=== PATIENT | male | born 1970 | race Caucasian/White ===

== ENCOUNTER → 2022-02-16 14:44 | Outpatient (BNVA) | payer OTHER, SELFPAY | PROVIDERS: PCP Nurse Practitioner; Visit Provider Internal Medicine Cardiovascular Disease | DX: R00.1 Bradycardia, unspecified (principal); T78.09XD Anaphylactic reaction due to other food products, subsequent encounter | CPT/HCPCS: 93005; 99203; 99204 ==

== ENCOUNTER 2022-04-01 11:01 | Outpatient (CLI) | payer OTHER, SELFPAY ==
[2022-04-01 11:20] VITALS: BMI 26.3
--- NOTE | 2022-04-01 11:40 | ECG_ITS ---
[facility] Test Date: 2022-04-01 Pat Name: Darryl Garcia Department: Room: Gender: Male Chart Calculator: Bhakti Leggett : 1970 Requested By: Jo Vega Order Number: [id number] Heber MD: Jo Vega M.D. Interpretive Statements NAME OF STUDY: TREADMILL STRESS ECHOCARDIOGRAM PROCEDURE: The baseline electrocardiogram showed [normal sinus rhythm with poor R wave progression. Possible old septal SC. At the baseline, the patient's blood pressure was 122/71 mm Hg with a heart rate of 66. The patient exercised for 13 minutes and 30 seconds on a standard Atul protocol. Patient attained a maximum heart rate of 162 beats per minute(97% of the maximum predicted heart rate) with a blood pressure at the peak exercise of 118/51 mm Hg. The EKG at the peak exercise revealed no significant changes. Patient did not have any chest pain or any significant arrhythmis with the exercise The echocardiographic pictures were taken at the baseline, immediate post exercise and during the recovery phase, at the standard views. During the recovery phase, there were no new changes. Blood pressure at the end of the recovery phase was 106/70 mm Hg with a heart rate of 78 per minute. CONCLUSION: 1. Normal EKG response to [treadmill exercise 2. No exercise-induced chest pain or cardiac arrhythmia 3. Good exercise tolerance, attained a maximum of 17.2 METs 4. The impaired blood pressure response to exercise may suggest increased cardiovascular risk. Clinical correlation is recommended 4. Echocardiographic pictures were taken at the standard views; see separate report. Electronically Signed On 04-11-2022 17:04:26 CDT by Jo Vega M.D. [email or web address]
[2022-04-01 11:45] VITALS: BP 106/70; PULSE 77
--- NOTE | 2022-04-01 12:15 | USCV_ITS ---
Stress Echo Darryl Garcia Age: 52 Gender: M : 1970 Exam Date: 04/01/2022 11:28 Ordering Phys: Jo Vega MD ([email or web address]) Technologist: Victor Manuel Johansen Exam Location: [facility] [place] Indication: alphagal anaphalaxis Rhythm: Sinus Patient History: Cardiac Medications: Medications in past 24 hours: Contrast: Stress Results Protocol: Atul Total dose(mL): Exercise Duration (min:sec): 1330 METS: 17.2 Resting HR: 55 Resting BP: 139 / 90 Peak HR: 162 Peak BP: 176 / 87 Max Predicted HR: 166 98 % Max Predicted HR Target HR: 141 Double Product: 48184 Stress Summary: The patient's target heart rate was achieved The hemodynamic response to exercise was normal The patient's target heart rate was achieved BP Response: Normal Reason for Termination: Test terminated after reaching target heart rate (85% max predicted) Cardiac Symptoms: None ECG Analysis Resting ECG: Please see separate report Stress ECG: Please see separate report Arrhythmia: Please see separate report MEASUREMENTS (Male/Female) Normal Values FINDINGS Baseline echocardiogram revealed normal LV size and ejection fraction of around 60%. Segmental wall motion analysis revealed no gross wall motion normalities. The aortic root appeared to be of normal size. No significant pericardial effusion. With the peak exercise, there was good augmentation of all the segments with no exercise-induced wall motion normalities. During the recovery phase, the wall motion returned to the baseline CONCLUSIONS 1. Normal echocardiographic response to exercise. 2. No significant coronary ischemia, based on the above findings. 3. For the EKG response to exercise, please see separate report Dr Jo Vega MD [facility] (Electronically Signed) Final Date: 02 April 2022 07:59 S
== END 2022-04-01 11:02 | disposition home or self-care (01) ==
PROVIDERS: PCP Nurse Practitioner; Visit Provider Internal Medicine Cardiovascular Disease
DX: T78.2XXA Anaphylactic shock, unspecified, initial encounter (principal); I49.8 Other specified cardiac arrhythmias; R06.02 Shortness of breath
CPT/HCPCS: 93017; 93350

== ENCOUNTER → 2022-10-21 13:46 | Outpatient (BNVA) | payer OTHER, SELFPAY | PROVIDERS: PCP Nurse Practitioner; Visit Provider Podiatrist Foot & Ankle Surgery | DX: M20.12 Hallux valgus (acquired), left foot (principal); M20.11 Hallux valgus (acquired), right foot | CPT/HCPCS: 73630 ==

== ENCOUNTER 2022-10-21 15:57 | Outpatient (CLI) | payer OTHER, SELFPAY | END 2022-10-21 15:58 | disposition home or self-care (01) | LOC: SPT 15:57 | PROVIDERS: PCP Nurse Practitioner; Visit Provider Podiatrist Foot & Ankle Surgery | DX: Z46.89 Encounter for fitting and adjustment of other specified devices (principal); M21.611 Bunion of right foot; M21.612 Bunion of left foot | CPT/HCPCS: 97760; 99203; L3100 ==

== ENCOUNTER 2022-11-30 13:13 | Outpatient (CLI) | payer OTHER, SELFPAY ==
[2022-11-30 14:04] LABS: Basophils % 0.7 %; Eosinophils # 0.1 10^3/uL (0.0-0.8); Eosinophils % 1.6 %; Hemoglobin 14.2 g/dL (11.7-16.6); Lymphocytes # 1.1 10^3/uL (0.8-4.8); Lymphocytes % 25.2 %; Mean Corpuscular HGB Conc 33.8 g/dL (30.0-36.0); Mean Corpuscular Hemoglobin 29.8 pg (28.0-34.0); Mean Corpuscular Volume 88.2 fl (80-94); Mean Platelet Volume 11.5 fL (7.4-10.4); Monocytes # 0.4 10^3/uL (0.2-0.9); Monocytes % 8.5 %; Neutrophils # 2.84 10^3/uL (1.8-7.7); Neutrophils % 63.8 %; Nucleated Red Blood Cells % 0 %; Platelet Count 219 10^3/cmm (130-400); Red Blood Count 4.76 10^6/uL (4.1-5.3); Red Cell Distribution Width 13.2 % (12.1-15.1); White Blood Count 4.5 10^3/uL (4.0-10.0)
[2022-11-30 14:28] LABS: Alanine Aminotransferase 19 U/L (0-41); Albumin Level 4.2 g/dL (3.5-5.2); Alkaline Phosphatase 64 U/L (40-130); Anion Gap 13.7 (5-19); Aspartate Amino Transferase 21 U/L (0-40); Blood Urea Nitrogen 19 mg/dL (6-20); Carbon Dioxide 25 mmol/L (22-29); Chloride 105 mmol/L (98-107); Globulin 2.4 g/dL (1.3-4.6); Glomerular Filtration Rate 57.5 mL/min (90-130); Glucose 70 mg/dL (65-115); Osmolality Calculated 289 mOsm/kg (285-295); Potassium 4.7 mmol/L (3.5-5.1); Sodium 139 mmol/L (136-145); Total Bilirubin 0.7 mg/dL (0.15-1.2); Total Protein 6.6 g/dL (6.6-8.7)
== END 2022-11-30 13:14 | disposition home or self-care (01) ==
PROVIDERS: PCP Nurse Practitioner; Visit Provider Specialist
DX: T17.1XXA Foreign body in nostril, initial encounter (principal); X58.XXXA Exposure to other specified factors, initial encounter
CPT/HCPCS: 36415; 80053; 85025; 93005

== ENCOUNTER 2022-12-03 14:52 | Outpatient (CLI) | payer OTHER, SELFPAY ==
--- NOTE | 2022-12-03 15:08 | CT_ITS ---
WS: [id number] CT FACIAL BONES HISTORY: FOREIGN BODY IN NOSTRIL TECHNIQUE: Images obtained from the supraorbital location through the mandible. Soft tissue and bone windows are reviewed. Coronal and sagittal reformats have also been submitted. DLP: 595.[address] scans at [facility] use at least one of these dose optimization techniques: automated e xposure control; mA and/or kV adjustment per patient size (includes targeted exams where dose is matc hed to clinical indication); or iterative reconstruction. COMPARISON: None available. There are very tiny foreign body like densities noted at the base of the LEFT nostril and anterior to the LEFT maxilla. The largest foreign body like densities 3 mm which is adjacent to the maxilla. The re is a more superficial but very vague foreign body-like density measuring approximately 1 mm just b eneath the skin surface. There are actually several very tiny foreign body like objects very close to the skin surface at the same location. No osseous destruction. No fractures are identified. The visualized upper cervical spine is normal. N ormal appearance of the orbits and globes. Sinuses are clear. No air-fluid levels. CT/CT facial bones wo con* [id number] IMPRESSION: 1. There are multiple very small foreign body like fragments in the soft tissu es just inferior to the LEFT nostril and embedded within the upper lip. There a re several 1-2 mm fragments just beneath the skin surface. The largest fragment is adjacent to the maxilla. 2. No osseous abnormalities.
== END 2022-12-03 14:53 | disposition home or self-care (01) ==
LOC: RAD 14:54
PROVIDERS: PCP Nurse Practitioner; Visit Provider Specialist
DX: T17.1XXA Foreign body in nostril, initial encounter (principal); T18.0XXA Foreign body in mouth, initial encounter; X58.XXXA Exposure to other specified factors, initial encounter
CPT/HCPCS: 70486

== ENCOUNTER → 2022-12-31 13:05 | Outpatient (BNVA) | payer OTHER, SELFPAY | PROVIDERS: PCP Nurse Practitioner; Visit Provider Podiatrist Foot & Ankle Surgery | DX: M20.12 Hallux valgus (acquired), left foot (principal); M20.11 Hallux valgus (acquired), right foot; M72.2 Plantar fascial fibromatosis | CPT/HCPCS: 99213 ==